=== PATIENT | male | born 1970 | race Caucasian/White ===

== ENCOUNTER → 2018-06-20 | Outpatient (CLI) | payer BC | LOC: GMAL 10:51 | PROVIDERS: ATTEND Family Medicine | DX: Z00.00 Encounter for general adult medical examination without abnormal findings (principal) ==

== ENCOUNTER → 2018-11-04 | Outpatient (CLI) | payer BC | LOC: GMAL 10:45 | PROVIDERS: ATTEND Family Medicine | DX: E55.9 Vitamin D deficiency, unspecified (principal) ==

== ENCOUNTER → 2019-06-23 | Outpatient (CLI) | payer BC | LOC: GMAL 10:30 | PROVIDERS: ATTEND Family Medicine | DX: Z00.01 Encounter for general adult medical examination with abnormal findings (principal); D51.3 Other dietary vitamin B12 deficiency anemia; Z80.42 Family history of malignant neoplasm of prostate ==

== ENCOUNTER → 2020-04-05 | Outpatient (CLI) | payer BC | LOC: GMAL 14:09 | PROVIDERS: ATTEND Family Medicine | DX: N39.0 Urinary tract infection, site not specified (principal) ==